=== PATIENT | female | born 1985 | race Caucasian/White ===

== ENCOUNTER 2016-04-16 05:30 | Inpatient (IN) ==
[2016-04-16] MEDS ORDERED: Famotidine 20 MG/2 ML VIAL IVP PRN (05:53)
[2016-04-16] MEDS ORDERED: Metoclopramide 10 MG/2 ML VIAL IVP PRN (05:53)
[2016-04-16] MEDS ORDERED: *HR* Nalbuphine 20 MG/ML AMPUL IVP PRN (05:57)
[2016-04-16] MEDS ORDERED: miSOPROStol 25 MCG TABLET PO ONE (06:15)
[2016-04-16 06:40] LABS: Basophils % 0.6 %; Eosinophils # 0.1 K/mcL (0.0-0.6); Eosinophils % 1.3 %; Hematocrit 39.6 % (35.3-44.9); Hemoglobin 13.6 g/dL (11.5-15.4); Immature Granulocytes % 0.6 % (0-4); Lymphocytes # 1.7 K/mcL (0.6-4.6); Lymphocytes % 26.7 %; Mean Corpuscular HGB Conc 34.3 g/dL (31.6-35.5); Mean Corpuscular Hemoglobin 31.9 pg (28.0-33.3); Mean Corpuscular Volume 92.7 fL (83.0-100.0); Mean Platelet Volume 10.7 fL (9.4-12.4); Monocytes # 0.5 K/mcL (0.0-1.3); Monocytes % 7.2 %; Neutrophils # 4.1 K/mcL (1.6-8.9); Platelet Count 206 K/mcL (140-400); Red Blood Count 4.27 M/mcL (3.82-4.97); Red Cell Distribution Width 12.6 % (11.5-14.5); Segmented Neutrophils % 63.6 %
--- NOTE | 2016-04-16 07:04 | Anesthesia Evaluation PreOp ---
Date of Encounter: 04/16/16 Time of Encounter: 07:02 - Past History Planned Operation: vaginal del, Cardiac History: Denies any Significant Hx Pulmonary History: Denies Any Significant HX VOCAL TEACHER History: Denies Any Significant HX Other Medical History: Denies Any Significant HX Anesthesia History: No Prior Anesthetic Complications, Past Anesthesia : Yes (term) Alcohol Use: none Drug use: none Medications and Allergies Tablet 1 tab PO DAILY 04/16/16 [History] Allergies No Known Allergies Allergy (Verified 01/14/15 10:10) Anesthesia Results - Labs 04/16/16 06:25 Anesthesia Exam - HEENT Pupil (Motor): Pupils equal Mallampati: II Teeth: Normal Oral Opening: Greater than 3 - VOCAL TEACHER LOC: Oriented VOCAL TEACHER Motor: Normal RUE, Normal LUE, Normal RLE, Normal LLE, Normal Face VOCAL TEACHER Sensory: Normal: RUE, LUE, RLE, LLE, Face - Cardiac Rhythm: Regular Murmur: None - Pulmonary Breath Sounds: bilateral Clear Respiratory Effort: Symmetrical Anesthesia Assess/Plan ASA Score: 2 Modified [place] Scale for Level of Consciousness: Cooperative, oriented, and tranquil Anesthetic Plan: General, Regional Monitoring Plan: Standard Monitors
--- NOTE | 2016-04-16 10:20 | OB/GYN History & Physical ---
Date of Encounter: 04/16/16 Time of Encounter: :17 History of Present Illness Chief complaint: IOL HPI: Ms. Larkin is a 31 year old female presenting at 39 weeks gestation for elective IOL. THis has been complicated by possible placental lakes vs separation that resolved spontaneously. No other complications. Blood type O positive. Rubella immune. Serologies and GBS negative. She denies complaints today. Good FM. Past Med Surg Social Fam HX - Past Medical History Medical history: no medical history Psychiatric history: no psych history - Past Surgical History Surgical History: breast surgery, other - Social History Smoking Status: Never smoker Smokeless Tobacco Status: No Alcohol use: none Drug use: none - Family History Mother Age: 55 Living Status: Still Living Hx Family Cardiac Disorders: No Hx Family Respiratory Disorders: No Hx Family Cancer: No Hx Family GI Disorders: No Hx Family Genitourinary Disorders: No Hx Family Endocrine Disorder: Yes (type 2 diabetic) Hx Family Musculoskeletal Disorders: No Hx Family Neuromuscular Disorders: No Hx Family Neurologic Disorders: No Hx Family HEENT Disorders: No Hx Family Autoimmune Disorders: No Hx Family Reproductive Disorders: No Hx Family Psychosocial Disorders: No Hx Family Medical Disorders: No Obstetrical History - Pregnancies : 2 Para: 11 Livin Medications and Allergies Tablet 1 tab PO DAILY 04/16/16 [History] Allergies No Known Allergies Allergy (Verified 01/14/15 10:10) Review of System OB All systems PM: reviewed and no additional remarkable complaints except as stated Exam - Vital Signs Vital signs: Initial Vital Signs Temp Pulse Resp BP 97.6 F 108 16 120/79 04/16/16 05:58 04/16/16 05:58 04/16/16 05:58 04/16/16 05:58 - Constitutional Constitutional: well developed, well nourished, no acute distress - HEENT HEENT: Mucus Membranes Moist - Lungs Respiratory exam: CTAB - Cardiovascular Cardiovascular exam: RRR, +S1, +S2 - Abdomen Abdomen: Present: gravid, non tender - Vulva Vulva: bilateral: normal - Vagina Vagina: Present: normal moisture Results Result Diagrams: 04/16/16 06:25 All other labs normal. - VTE Reasons for not Prescribing Prophylaxis: Treatment not Indicated - Low risk for VTE
[2016-04-16] MEDS ORDERED: Oxytocin 20 units/ LR 1000 mL 20 UNIT/1,000 ML BAG IVC SCH (10:30)
[2016-04-16] MEDS: Ringers Solution, Lactated 1,000 ML IVC SCH ×2 (10:31→13:46)
[2016-04-16] MEDS ORDERED: Epidural Premix (fent/bupiv) 110 ML EP SCH (11:15)
--- NOTE | 2016-04-16 12:51 | OB Labor Progress Note ---
Date of Encounter: 04/16/16 Time of Encounter: 12:49 Labor Progress Note - Subjective Subjective: c/o cramping. - Cervix Cervix: 5/90/0 - Heart Tones Heart Tones: RNST - Hyampom Hyampom: uc's q 3 min - Interventions Interventions: AROM clear - Plan Plan: Expect
[2016-04-16] MEDS ORDERED: Epidural Premix (fent/bupiv) 110 ML EP ONE (13:03)
--- NOTE | 2016-04-16 14:39 | OB/GYN Procedure Note ---
Delivery - Delivery Date: 04/16/16 Provider: Connor Mir Intrapartum events: none Delivery induction: misoprostol Delivery monitor: external FHT, external uterine Anesthesia: epidural Estimated Blood Loss: 150 - (s) Infant A Infant Delivery Date: 04/16/16 Infant Delivery Time: 14:19 Presentation: vertex Position: JEAN Route of delivery: Gender: Male Viability: Viable Pounds: 7 Ounces: 1 at 1 minute: 9 at 5 mins: 9 Shoulder Dystocia: not encountered Specimens collected: cord blood Placenta: spontaneous Cord: 3 umbilical vessels - Repair Episiotomy: none Laceration Description: Perineal - 1st Degree - Complications Delivery complications: none - Disposition Mom disposition: stable in LDR disposition: stable in LDR (Pt s/p over 1 degree laceration without difficulty. No complications. Normal placenta with 3 vc.)
[2016-04-16] MEDS ORDERED: Oxytocin 20 units/ LR 1000 mL 20 UNIT/1,000 ML BAG IVC ONE (17:25)
[2016-04-16] MEDS ORDERED: Measles/Mumps/Rubella Vacc 0.5 ML VIAL SQ PRN (17:25)
[2016-04-16] MEDS ORDERED: Oxytocin 20 units/ LR 1000 mL 20 UNIT/1,000 ML BAG IV SCH (17:25)
[2016-04-16] MEDS ORDERED: Rho Immune Globulin 1,500 UNIT SYRINGE IM PRN (17:25)
[2016-04-16] MEDS ORDERED: Acetaminophen 325 MG TABLET PO PRN (17:25)
[2016-04-16] MEDS: Ibuprofen 600 MG TABLET PO PRN (17:50)
[2016-04-17] MEDS: Ibuprofen 600 MG TABLET PO PRN ×4 (02:26→22:29)
--- NOTE | 2016-04-17 08:03 | OB/GYN Progress Note ---
Date of Encounter: 04/17/16 Time of Encounter: 08:00 - Assessment and Plan (1) Status post normal vaginal delivery Current Visit: Yes Status: Acute Subjective - Subjective Interval history: Patient doing well states bleeding has significantly slowed down having no pain. Breast-feeding is going well at this time. Patient states baby has to stay 36 hours for bilirubin testing so we will discharge home in a.m. if stable. If. States baby can go home later today and discharged later today. Patient reports: appetite normal, voiding normally, pain well controlled, ambulating normally : doing well Objective - Latest Vital Signs Latest vital signs: Vital Signs Temp Pulse Resp BP Pulse Ox 04/17/16 02:25 97.6 F 50 14 109/71 99 04/16/16 21:00 98.2 F 64 16 105/60 96 04/16/16 18:53 98.1 F 72 16 109/67 04/16/16 18:45 98.1 F 72 16 109/67 04/16/16 17:45 97.6 F 60 16 122/72 98 04/16/16 17:15 16 Intake and Output 04/16/16 04/17/16 04/17/16 23:59 07:59 15:59 Intake Total 900 / 900 Output Total 600 / 600 600 / 600 Balance 300 / 300 -600 / -600 Intake: Oral 500 / 500 Other 400 / 400 Output: Urine 600 / 600 600 / 600 Other: Weight 56.8 kg Patient Weight 04/17/16 23:59 Weight 56.8 kg - Exam Lungs: bilateral: normal Chest: Normal S1, Normal S2 Extremities: Present: normal Abdomen: Present: normal appearance, soft Uterus: Present: firm Uterus Position: At Umbilicus
[2016-04-17] MEDS: Prenatal Vit/FA 1 EACH TABLET PO SCH (09:10)
[2016-04-18] MEDS: Ibuprofen 600 MG TABLET PO PRN (04:44)
[2016-04-18 08:13] VITALS: BP 113/69
--- NOTE | 2016-04-18 08:14 | Discharge Summary ---
Date of Encounter: 04/18/16 Time of Encounter: 08:12 - Discharge Diagnosis (1) Status post normal vaginal delivery Priority: Primary Status: Resolved (2) Elective induction of labor planned Priority: Secondary Status: Resolved (3) Third trimester Priority: Secondary Status: Resolved - Discharge Medications Home Medications: Tablet 1 tab PO DAILY 04/16/16 [History] Allergies/Adverse Reactions: Allergies No Known Allergies Allergy (Verified 01/14/15 10:10) Data Procedures and tests throughout hospitalization: Laboratory Tests 04/16/16 06:25 WBC 6.4 RBC 4.27 Hgb 13.6 Hct 39.6 MCV 92.7 MCH 31.9 MCHC 34.3 RDW 12.6 Plt Count 206 MPV 10.7 Immature Gran % 0.6 Seg Neutrophils % 63.6 Lymphocytes % 26.7 Monocytes % 7.2 Eosinophils % 1.3 Basophils % 0.6 Neutrophils # 4.1 Lymphocytes # 1.7 Monocytes # 0.5 Eosinophils # 0.1 Basophils # 0.0 Date of admission: 04/16/16 05:44 Primary care physician: PCP NO Consults: 04/16/16 17:25 Consult to Call Out Operator [CONS] Routine Comment: Vaginal delivery, consult needed - Patient Status Disposition: Home, Self-Care Condition: Good Functional capacity at discharge: independent ambulation Overall status at discharge: patient is progressing back to baseline - Discharge Instructions Follow Up With: LUISITO,PCP [Primary Care Provider] - - Diet and Activity Activity: increase activity as tolerated Diet: advance to your usual diet Hospital Course Reason for admission: induction of labor Delivery: Episiotomy: none complications: none Discharge diagnosis: IUP at term delivered baby: male Time Attestation: Total time spent providing and/or coordinating discharge services: Time Spent: Less than 30 minutes Exam - Constitutional Vitals: Temp Pulse Resp BP Pulse Ox 97.8 F 63 14 99/61 98 04/17/16 20:20 04/17/16 20:20 04/17/16 20:20 04/17/16 20:20 04/17/16 20:20 General appearance IM: cooperative, A&O X 3, pleasant, no acute distress, answers questions appropriately - Respiratory Respiratory exam: Present: CTAB - Cardiovascular Cardiovascular exam IM: Present: RRR, +S1, +S2 - Rectal Rectal exam: deferred - Extremities Exam Extremities exam IM: Present: full ROM, warm, radial pulses palpable and symetrical. Absent: tenderness - Neurological Exam Neurological exam: alert, CN II-XII intact, oriented X3, no focal deficits - Attending Attestation Stephen Alberto MD, FACOG
[2016-04-18] MEDS: Prenatal Vit/FA 1 EACH TABLET PO SCH (08:34)
--- NOTE | 2016-04-23 08:07 | OB/GYN History & Physical ---
Date of Encounter: 04/23/16 Time of Encounter: 12:00 Assessment and Plan (1) 39 weeks gestation of Status: Acute will plan induction of labor starting with Cytotec, will perform AROM when in labor. History of Present Illness Chief complaint: Here for induction HPI: Ms. Larkin is a 31 year old female 2 para 1 female presents to labor and delivery for induction of labor at 39 weeks gestation. Her cervix is favorable and her family as well as his family both live in [place] therefore they desired induction so that one could be present. Her thus far has been uncomplicated. Past Med Surg Social Fam HX - Past Medical History Source: patient, old records reviewed Medical history: no medical history Psychiatric history: no psych history - Past Surgical History Surgical History: breast surgery, other - Social History Smoking Status: Never smoker Smokeless Tobacco Status: No Alcohol use: none Drug use: none - Family History Mother Age: 55 Living Status: Still Living Hx Family Cardiac Disorders: No Hx Family Respiratory Disorders: No Hx Family Cancer: No Hx Family GI Disorders: No Hx Family Genitourinary Disorders: No Hx Family Endocrine Disorder: Yes (type 2 diabetic) Hx Family Musculoskeletal Disorders: No Hx Family Neuromuscular Disorders: No Hx Family Neurologic Disorders: No Hx Family HEENT Disorders: No Hx Family Autoimmune Disorders: No Hx Family Reproductive Disorders: No Hx Family Psychosocial Disorders: No Hx Family Medical Disorders: No Obstetrical History - Pregnancies : 2 Medications and Allergies Tablet 1 tab PO DAILY 04/16/16 [History] Allergies No Known Allergies Allergy (Verified 01/14/15 10:10) Exam - Vital Signs Vital signs: Initial Vital Signs Temp Pulse Resp BP 97.6 F 108 16 120/79 04/16/16 05:58 04/16/16 05:58 04/16/16 05:58 04/16/16 05:58 - Constitutional Constitutional: well developed - HEENT HEENT: EOMI - Neck Neck exam: full ROM - Lungs Respiratory exam: CTAB - Cardiovascular Cardiovascular exam: RRR - Abdomen Abdomen: Present: bowel sounds normal, gravid, non tender - Extremities Extremities exam: full ROM Deep Tendon Reflex Grade: 2+ Normal - Vagina Vagina: Present: normal moisture - Cervix Dilation: 3 Effacement: 80 Station: -2 Results Result Diagrams: 04/16/16 06:25 All other labs normal. - VTE Reasons for not Prescribing Prophylaxis: Treatment not Indicated - Low risk for VTE
== END 2016-04-18 10:15 | disposition home or self-care (01) | DRG 775 ==
LOC: 1NENULAB 05:44 → 1NENUOBS 17:44
PROVIDERS: ADMIT Obstetrics & Gynecology; ATTEND Obstetrics & Gynecology